=== PATIENT | female | born 1950 | race Caucasian/White ===

== ENCOUNTER 2020-06-02 10:50 | Emergency (ER) | payer OTHER ==
[2020-06-02 10:57] VITALS: TEMP 97.6; BMI 31.1
[2020-06-02] MEDS ORDERED: methylPREDNISolone NA SUCC 125 MG/2 ML VIAL IVPUSH ONE (11:23)
[2020-06-02] MEDS ORDERED: FAMOTIDINE 20 MG/50 ML IVPB 20 MG/50 ML MG IVPB ONE ×2 (11:23→11:38)
--- NOTE | 2020-06-02 11:29 | PDOC ---
History of Present Illness - General Chief Complaint: Allergic Reaction Stated Complaint: ALLERGIC REACTION Time Seen by Provider: 06/02/20 11:22 - History of Present Illness Initial Comments: Jolene Gallardo is a 70yo woman with no history of severe allergic reaction who presents with itching after eating almond milk this morning. She is turkmen-speaking, and her adult granddaughter is at bedside and wishes to translate. Per the granddaughter, the patient had an episode when she became slightly itchy after eating cereal with almond milk a few weeks ago. She went for allergy testing but does not know the results. Today, the patient's daughter forgot about the potential allergy and cooked pancakes with almond milk again. The patient ate them with subsequent generalized itching and rash on her legs. She reports feeling short of breath but denies any throat swelling, throat itching, wheezing, lightheadedness, or other current symptoms. She has no other known allergies and has no history of allergic reaction or anaphylaxis in the past. She does not have an epipen at home. Past History - Medical History Allergies/Adverse Reactions: Allergies Allergy/AdvReac Type Severity Reaction Status Date / Time Milk Containing Products Allergy Intermediate Hives Verified 06/02/20 10:57 Home Medications: Ambulatory Orders EPINEPHrine (EPI-PEN 0.3MG) [Epipen 0.3MG -] 0.3 mg IM ASDIR #2 pens 06/02/20 COPD: No HTN: Yes - Reproductive History Is Patient Now?: No - Psycho-Social/Smoking History Smoking History: Never smoked Information on smoking cessation initiated: No - Substance Abuse Hx (Audit-C & DAST Scrn) How often the patient has a drink containing alcohol: Never Score: In Men: 4 or > Positive; In Women: 3 or > Positive: 0 Screen Result (Pos requires Nsg. Audit-10AR): Negative In the last yr the pt used illegal drug/Rx for NonMed reason: No Score: Yes response is considered Positive: 0 Screen Result (Positive result requires Nsg. DAST-10): Negative Review of Systems - Review of Systems Comments:: General: No fevers, no chills, no weight or appetite change, no malaise HEENT: No changes in vision, no changes in hearing, no congestion, no sore throat CV: No chest pain, no palpitations, no LE edema Pulm: + SOB, no cough, no wheezing GI: No nausea or vomiting, no change in bowel habits, no melena : No frequency, no urgency, no dysuria Musc: No back pain, no joint swelling, no recent injury Skin: +rash, no lesions, no erythema, +itching Endo: No excessive thirst, no heat/cold intolerance Heme: No unusual bruising or bleeding, no swollen glands Neuro: No syncope, no numbness/tingling, no focal weakness Vasc: No claudication Psych: No recent change in mood, no SI or HI *Physical Exam - Vital Signs Last Vital Signs Temp Pulse Resp BP Pulse Ox 97.6 F 115 H 21 H 170/115 H 95 06/02/20 10:55 06/02/20 10:55 06/02/20 10:55 06/02/20 10:55 06/02/20 10:55 - Physical Exam General: In no acute distress HEENT: Atraumatic, PERRL, EOMI, MMM, voice normal, normal neck ROM, uvula midline, no visible oropharyngeal swelling Cards: RRR, no murmur appreciated Pulm: Comfortable on room air, clear to auscultation bilaterally. No wheezing or crackles Abd: Soft, nontender, nondistended Ext: Atraumatic. No LE edema. ROM intact. WWP Skin: Diffuse hives on lower extremities. None visible on upper torso, face, BUE Neuro: A&Ox3, CN grossly intact, normal speech, motor/sensory grossly intact and symmetric Psych: Mood appropriate to situation Medical Decision Making - Medical Decision Making 06/02/20 11:24 Jolene Gallardo is a 70yo woman with no history of severe allergic reaction who presents with itching and hives after eating almond milk this morning. - Hives on lower body, pt uncomfortably and scratching. No apparent respiratory involvement, no wheezing, no throat swelling, no uvular swelling. Normal oxygen saturation, otherwise normal vitals - Benadyl, famotidine, solu-medrol - No epinephrine at this time 06/02/20 12:30 - Patient feels significantly improved - Itching and hives resolved - Will d/c home to follow up with her PMD - Discussed home care, return precautions w/ granddaughter Discussed with Dr Jhony Hanley PGY3 Discharge - Discharge Information Problems reviewed: Yes Clinical Impression/Diagnosis: Allergic reaction Qualifiers: Encounter type: initial encounter Qualified Code(s): T78.40XA - Allergy, unspecified, initial encounter Condition: Stable Disposition: HOME - Admission No - Additional Discharge Information Prescriptions: EPINEPHrine (EPI-PEN 0.3MG) [Epipen 0.3MG -] 0.3 mg IM ASDIR #2 pens - Follow up/Referral - Patient Discharge Instructions Patient Printed Discharge Instructions: DI for General Allergic Reactions, Epinephrine Injection Additional Instructions: Discharge Instructions: You were seen in the emergency department for an allergic reaction. Your symptoms improved with medications. Home Care and Follow Up: - If you have additional episodes of itching, you may take diphehydramine (Benadryl) 1-2 tablets every 6 hours as needed. Be aware this medication will make you sleepy. - You may take Benadryl any time you have similar reactions in the future - You have been prescribed a medication called an Epi-pen. This is to be used for severe allergic reactions when you are unable to breath, you have wheezing, throat swelling, or other life-threatening symptoms. - Call your regular doctor today to schedule a follow up appointment - Seek immediate care at the closest emergency department for any allergic reaction with inability to breath, wheezing, throat swelling, lightheadedness, chest pain, or other severe symptoms. Instrucciones de descarga: Lo vieron en el departamento de emergencias por mike reaccin alrgica. Macey sntomas mejoraron con los medicamentos. Atencin domiciliaria y seguimiento: - Si tiene episodios adicionales de picazn, puede dayna 1 o 2 tabletas de difehidramina (Benadryl) cada 6 horas segn sea necesario. Tenga en cuenta que annie medicamento le everardo sueo. - Puede dayna Benadryl siempre que tenga reacciones similares en el futuro. - Le almendarez recetado un medicamento llamado Epi-pen. [place] se debe usar para reacciones alrgicas graves cuando no puede respirar, tiene sibilancias, hinchazn de garganta u otros sntomas potencialmente mortales. - Llame a marcus mdico habitual hoy para programar mike kaur de seguimiento - Busque atencin inmediata en el departamento de emergencias ms cercano por cualquier reaccin alrgica con incapacidad para respirar, sibilancias, hinchazn de garganta, mareos, dolor en el pecho u otros sntomas graves. Print Language: EGYPTIAN - Post Discharge Activity
[2020-06-02] MEDS ORDERED: methylPREDNISolone NA SUCC 125 MG/2 ML VIAL ONE (11:38)
--- NOTE | 2020-06-02 13:07 | PDOC ---
Documentation entered by Jenn Santiago SCRIBE, acting as scribe for Jose Martin Booker MD. Jose Martin Booker MD: This documentation has been prepared by the lindaibe, Jenn Santiago SCRIBE, under my direction and personally reviewed by me in its entirety. I confirm that the documentation accurately reflects all work, treatment, procedures, and medical decision making performed by me. Attending Attestation - Resident Resident Name: Winnie Hanley - ED Attending Attestation I have performed the following: I have examined & evaluated the patient, The case was reviewed & discussed with the resident, I agree w/resident's findings & plan, Exceptions are as noted - HPI HPI: 06/02/20 12:41 The patient is a 70-year-old female with past medical history significant for HTN who presents to the emergency department with an allergic reaction. The patient reports several weeks ago she had cereal with almond milk and developed an itchy rash. The patient reports getting allergy tested afterwards, but the patient doesnt recall the results. The patient reports she inadvertently had pancakes made with almond milk today, and she shortly after developed itching and rash to her legs. Denies throat swelling or wheezing. Denies nausea or vomiting. - Physicial Exam PE: 06/02/20 12:54 See resident exam - Medical Decision Making 06/02/20 13:08 70 F with mild allergic reaction, likely to almond milk. No evidence of airway involvement. - Benadryl, solumedrol, pepcid 06/02/20 13:08 Pt reassessed after 2 hours. Now has complete resolution of rash and itching. Pt is well appearing, with normal vitals. Clinically stable for DC at this time. I discussed the physical exam findings, ancillary test results and final diagnoses with the patient. I answered all of the patient's questions. The patient was satisfied with the care received and felt comfortable with the discharge plan and treatment plan. The patient agrees to follow up with the primary care physician within 24-72 hours. Discharge - Discharge Information Problems reviewed: Yes Clinical Impression/Diagnosis: Allergic reaction Qualifiers: Encounter type: initial encounter Qualified Code(s): T78.40XA - Allergy, unspecified, initial encounter Condition: Stable Disposition: HOME - Additional Discharge Information Prescriptions: EPINEPHrine (EPI-PEN 0.3MG) [Epipen 0.3MG -] 0.3 mg IM ASDIR #2 pens - Follow up/Referral - Patient Discharge Instructions Patient Printed Discharge Instructions: DI for General Allergic Reactions, Epinephrine Injection Additional Instructions: Discharge Instructions: You were seen in the emergency department for an allergic reaction. Your symptom s improved with medications. Home Care and Follow Up: - If you have additional episodes of itching, you may take diphehydramine (Benadryl) 1-2 tablets every 6 hours as needed. Be aware this medication will make you sleepy. - You may take Benadryl any time you have similar reactions in the future - You have been prescribed a medication called an Epi-pen. This is to be used for severe allergic reactions when you are unable to breath, you have wheezing, throat swelling, or other life-threatening symptoms. - Call your regular doctor today to schedule a follow up appointment - Seek immediate care at the closest emergency department for any allergic reaction with inability to breath, wheezing, throat swelling, lightheadedness, chest pain, or other severe symptoms. Instrucciones de descarga: Lo vieron en el departamento de emergencias por mike reaccin alrgica. Macey sntomas mejoraron con los medicamentos. Atencin domiciliaria y seguimiento: - Si tiene episodios adicionales de picazn, puede dayna 1 o 2 tabletas de difehidramina (Benadryl) cada 6 horas segn sea necesario. Tenga en cuenta que annie medicamento le everardo sueo. - Puede dayna Benadryl siempre que tenga reacciones similares en el futuro. - Le almendarez recetado un medicamento llamado Epi-pen. [place] se debe usar para reacciones alrgicas graves cuando no puede respirar, tiene sibilancias, hinchazn de garganta u otros sntomas potencialmente mortales. - Llame a marcus mdico habitual hoy para programar mike kaur de seguimiento - Busque atencin inmediata en el departamento de emergencias ms cercano por cualquier reaccin alrgica con incapacidad para respirar, sibilancias, hinchazn de garganta, mareos, dolor en el pecho u otros sntomas graves. Print Language: MACEDONIAN - Post Discharge Activity
[2020-06-02 13:08] VITALS: BP 175/79; PULSE 73
== END 2020-06-02 13:18 | disposition home or self-care (01) ==
LOC: JER 10:50
PROC: 3E033NZ Introduction of Analgesics, Hypnotics, Sedatives into Peripheral Vein, Percutaneous Approach (ICD-10-PCS; principal; 2020-06-02)
PROC: 3E033GC Introduction of Other Therapeutic Substance into Peripheral Vein, Percutaneous Approach (ICD-10-PCS; 2020-06-02)
DX: T78.40XA Allergy, unspecified, initial encounter (principal)
CPT/HCPCS: 99284-25